=== PATIENT | male | born 1955 | race Caucasian/White ===

== ENCOUNTER 2023-02-09 10:46 | Emergency (ER) | payer MEDICARE, MEDICAID ==
[~2023-02-09] VITALS: Ht 175.3 cm; Wt 125.0 kg
[2023-02-09 10:50] VITALS: BP 132/84
== END 2023-02-09 12:33 | disposition home or self-care (01) ==
LOC: ER 10:47
DX: M79.602 Pain in left arm (principal); M79.89 Other specified soft tissue disorders; W18.39XA Other fall on same level, initial encounter; Y93.89 Activity, other specified; Y92.89 Other specified places as the place of occurrence of the external cause; Y99.8 Other external cause status
CPT/HCPCS: 29125; 73130; 99283

== ENCOUNTER 2023-09-05 10:50 | Emergency (ER) | payer MEDICARE, MEDICAID ==
[~2023-09-05] VITALS: Ht 180.3 cm; Wt 106.0 kg
[2023-09-05 10:53] VITALS: BP 171/99; PULSE 80; RESP 16; O2SAT 98
[2023-09-05] MEDS ORDERED: METH-798 PO (11:56)
[2023-09-05 12:36] VITALS: TEMP 98.4
--- NOTE | 2023-09-05 12:45 | NUR ---
HAND TENN[employer] GENERAL ASSESSMENT REVIEWED BY JOSEPHINE RN; APPROVED
== END 2023-09-05 12:36 | disposition home or self-care (01) ==
LOC: ER 10:51
DX: M25.551 Pain in right hip (principal)
CPT/HCPCS: 73502; 99283